=== PATIENT | male | born 1970 | race Caucasian/White ===

== ENCOUNTER 2017-12-07 13:02 | Emergency (ER) | payer OTHER ==
[~2017-12-07] VITALS: Ht 190.5 cm; Wt 91.8 kg
[2017-12-07 13:07] VITALS: BP 153/94
== END 2017-12-07 13:42 | disposition home or self-care (01) ==
LOC: ER 13:02
DX: S06.0X0A Concussion without loss of consciousness, initial encounter (principal); S13.9XXA Sprain of joints and ligaments of unspecified parts of neck, initial encounter; Z88.0 Allergy status to penicillin; W22.8XXA Striking against or struck by other objects, initial encounter; Y93.89 Activity, other specified; Y92.89 Other specified places as the place of occurrence of the external cause; Y99.8 Other external cause status
CPT/HCPCS: 99281